=== PATIENT | male | born 1965 | race Caucasian/White ===

== ENCOUNTER 2021-01-25 19:57 | Emergency (ER) | payer OTHER ==
[~2021-01-25] VITALS: Ht 180.3 cm; Wt 76.0 kg
[2021-01-25] MEDS ORDERED: CLINDAMYCIN HCL 150MG CAPSULE PO SCH (22:45)
[2021-01-25] MEDS ORDERED: ACETAMINOPHEN 325MG TABLET PO ONE (22:45)
[2021-01-25] MEDS ORDERED: LIDOCAINE HCL 1% 20ML VIAL (Pyxis) INJ INFIL ONE (22:45)
[2021-01-25] MEDS ORDERED: MORPHINE SULFATE 10 MG/ML CPJ IM ONE (23:30)
[2021-01-25] MEDS ORDERED: HYDROCODONE/ACETAMINOPHEN 10/325MG TABLET PO ONE (23:45)
[2021-01-26] MEDS ORDERED: CLIN300C12 MT (00:01)
[2021-01-26] MEDS ORDERED: BACITRACIN ZINC OINT UDPKT TOP ONE (00:30)
[2021-01-26 01:05] VITALS: BP 106/66
== END 2021-01-26 01:07 | disposition home or self-care (01) ==
LOC: ER 20:20
DX: L03.116 Cellulitis of left lower limb (principal); L03.115 Cellulitis of right lower limb; L02.416 Cutaneous abscess of left lower limb; L02.415 Cutaneous abscess of right lower limb; F41.9 Anxiety disorder, unspecified; F31.9 Bipolar disorder, unspecified; F20.9 Schizophrenia, unspecified
CPT/HCPCS: 99284; J3490; Z7610